=== PATIENT | male | born 1970 | race Asian ===

== ENCOUNTER 2019-12-21 14:44 | Outpatient (CLI) | payer MEDICAID | END 2019-12-21 14:45 | disposition critical access hospital (66) | LOC: EMS 14:44 | PROVIDERS: ATTEND Surgery | DX: R41.0 Disorientation, unspecified (principal) | CPT/HCPCS: A0425; A0429; A0999 ==

== ENCOUNTER 2019-12-21 15:10 | Emergency (ER) | payer MEDICAID ==
[2019-12-21] MEDS ORDERED: THIAMINE 100 MG TABLET PO STA (15:25)
--- NOTE | 2019-12-21 15:25 | ED Physician Documentation ---
PD HPI ALTERED MENTAL STATUS - Stated complaint Stated Complaint: AMS - History obtained from History obtained from: Patient, EMS - Additional information Additional information: 49-year-old gentleman with type 2 diabetes, not on insulin. He says he was drinking alcohol and wine this morning and then was slumped over the wheel of his car in the middle of the road. He was assessed by paramedics and state patrol but interestingly, his blood alcohol was negligible by breathalyzer. He says he has not been drinking any odd alcohol such as antifreeze, windshield wiper fluid or mouthwash. Review of Systems Ten Systems: 10 systems reviewed and negative Constitutional: denies: Fever, Chills Cardiac: denies: Chest pain / pressure, Palpitations Respiratory: denies: Dyspnea, Cough PD PAST MEDICAL HISTORY - Allergies Allergies/Adverse Reactions: Allergies Allergy/AdvReac Type Severity Reaction Status Date / Time No Known Drug Allergies Allergy Verified 12/21/19 15:19 PD ED PE NORMAL - Vitals Vital signs reviewed: Yes - General General: Other (Pleasant but drunk appearing gentleman laying in bed in no distress.) - HEENT HEENT: PERRL, EOMI (With a lot of horizontal nystagmus) - Neck Neck: Supple, no meningeal sign, No bony TTP - Cardiac Cardiac: Other (Tachycardic but regular) - Respiratory Respiratory: No respiratory distress, Clear bilaterally - Abdomen Abdomen: Soft, Non tender - Back Back: No CVA TTP, No spinal TTP - Derm Derm: Normal color, Warm and dry - Extremities Extremities: No edema, No calf tenderness / cord - Neuro Neuro: Alert and oriented X 3, No motor deficit, No sensory deficit, Normal speech Eye Opening: Spontaneous Motor: Obeys Commands Verbal: Oriented GCS Score: 15 - Psych Psych: Normal mood, Normal affect Results - Vitals Vitals: Vital Signs - 24 hr 12/21/19 12/21/19 12/21/19 15:19 15:55 16:25 Temperature 37.3 C Heart Rate 124 H 122 H 130 H Respiratory 16 24 22 Rate Blood Pressure 142/99 H 144/97 H 118/77 O2 Saturation 97 96 94 12/21/19 12/21/19 12/21/19 17:00 17:30 18:00 Temperature Heart Rate 121 H 120 H 118 H Respiratory 19 19 19 Rate Blood Pressure 108/67 105/63 106/86 H O2 Saturation 92 93 93 12/21/19 12/21/19 12/21/19 18:30 19:00 19:30 Temperature Heart Rate 111 H 113 H 109 H Respiratory 19 18 18 Rate Blood Pressure 119/74 119/72 101/52 L O2 Saturation 92 96 94 12/21/19 12/21/19 12/21/19 20:00 20:30 21:00 Temperature Heart Rate 102 H 103 H 106 H Respiratory 17 18 17 Rate Blood Pressure 98/71 116/84 H 108/74 O2 Saturation 94 98 92 Oxygen O2 Source Room air - EKG (time done) 1516 Rate: Rate (enter#) (122) Rhythm: Sinus tachycardia [place]: Normal Intervals: Normal NE QRS: Normal Ischemia: Non specific changes Computer interpretation: Agree with computer - Labs Labs: Laboratory Tests 12/21/19 12/21/19 12/21/19 15:28 15:28 15:42 WBC 10.9 H RBC 4.66 L Hgb 15.6 Hct 45.2 MCV 97.0 H MCH 33.5 H MCHC 34.5 RDW 14.5 Plt Count 158 MPV 11.8 H Neut # (Auto) 5.6 Lymph # (Auto) 4.1 [place] # (Auto) 0.8 Eos # (Auto) 0.2 Baso # (Auto) 0.1 Absolute Nucleated RBC 0.00 Nucleated RBC % 0.0 Sodium 138 Potassium 4.0 Chloride 97 L Carbon Dioxide 26 Anion Gap 15.0 H BUN 6 Creatinine 0.6 Estimated GFR (MDRD) 144 Glucose 246 H Calcium 9.4 Total Bilirubin 0.9 AST 135 H ALT 68 H Alkaline Phosphatase 70 Total Protein 7.3 Albumin 4.1 Globulin 3.2 Albumin/Globulin Ratio 1.3 Lipase 26 Urine Opiates Screen NEGATIVE Ur Oxycodone Screen NEGATIVE Urine Methadone Screen NEGATIVE Ur Propoxyphene Screen NEGATIVE Ur Barbiturates Screen NEGATIVE Ur Tricyclics Screen NEGATIVE Ur Phencyclidine Scrn NEGATIVE Ur Amphetamine Screen NEGATIVE U Methamphetamines Scrn NEGATIVE U Benzodiazepines Scrn NEGATIVE Urine Cocaine Screen NEGATIVE U Cannabinoids Screen NEGATIVE Ethyl Alcohol 373.3 PD MEDICAL DECISION MAKING - ED course ED course: Shortly after arrival patient became belligerent and agitated. Pulled out his IV. He is not a safe discharge so was given some anxiolysis with IM Zyprexa and Ativan. Took Call from Sister Shari, the patient did authorize me to talk with her. She was given an update. She plans to call back in the morning. She will pick them up when it is appropriate which it is certainly not now. He will need to sober up for at least 12 hours or so looking at the blood alcohol level. Care to oncoming emergency physician at shift change to reevaluate in the wee hours of the morning to Discharge as appropriate or if the patient is willing to wait until the daytime to talk to social work. Departure - Departure Clinical Impression: Altered mental status Qualifiers: Altered mental status type: delirium Qualified Code(s): R41.0 - Disorientation, unspecified Alcohol intoxication Qualifiers: Complication of substance-induced condition: with delirium Qualified Code(s): F10.921 - Alcohol use, unspecified with intoxication delirium Condition: Good Record reviewed to determine appropriate education?: Yes Instructions: ED Alcohol Intoxication
[2019-12-21 15:33] LABS: BASOPHILS # (AUTO) 0.1 10^3/uL (0.0-0.1); BASOPHILS % (AUTO) 1.2 %; EOSINOPHILS # (AUTO) 0.2 10^3/uL (0.0-0.7); HGB - HEMOGLOBIN 15.6 g/dL (14.0-18.0); LYMPHOCYTES # (AUTO) 4.1 10^3/uL (1.5-3.5); LYMPHOCYTES % (AUTO) 37.2 %; MEAN CORPUSCULAR HEMOGLOBIN 33.5 pg (27.0-31.0); MEAN CORPUSCULAR HGB CONC 34.5 g/dL (32.0-36.0); MEAN PLATELET VOLUME 11.8 fL (7.4-11.4); MONOCYTES # (AUTO) 0.8 10^3/uL (0.0-1.0); MONOCYTES % (AUTO) 7.3 %; NEUTROPHILS # (AUTO) 5.6 10^3/uL (1.5-6.6); NEUTROPHILS % (AUTO) 51.7 %; PLT - PLATELET COUNT 158 10^3/uL (130-450); RED BLOOD COUNT 4.66 10^6/uL (4.70-6.10); RED CELL DISTRIBUTION WIDTH 14.5 % (12.0-15.0); WHITE BLOOD COUNT 10.9 x10^3/uL (4.8-10.8)
[2019-12-21 15:48] LABS: MUDS CUTOFF CONCENTRATIONS CUTOFF CONC BELOW:
[2019-12-21 15:49] LABS: ALBUMIN 4.1 g/dL (3.2-5.5); ALBUMIN/GLOBULIN RATIO 1.3 (1.0-2.2); BILIRUBIN,TOTAL 0.9 mg/dL (0.2-1.0); CALCIUM 9.4 mg/dL (8.5-10.3); CREATININE 0.6 mg/dL (0.6-1.2); TOTAL PROTEIN 7.3 g/dL (6.7-8.2)
[2019-12-21 16:11] LABS: AMPHETAMINE SCREEN,URINE NEGATIVE (NEGATIVE); BENZODIAZEPINES SCREEN, URINE NEGATIVE (NEGATIVE); COCAINE SCREEN URINE NEGATIVE (NEGATIVE); METHADONE SCREEN, URINE NEGATIVE (NEGATIVE); METHAMPHETAMINES SCREEN, URINE NEGATIVE (NEGATIVE); OPIATE SCREEN, URINE NEGATIVE (NEGATIVE); OXYCODONE SCREEN, URINE NEGATIVE (NEGATIVE); PROPOXYPHENE SCREEN, URINE NEGATIVE (NEGATIVE); TRICYCLIC ANTIDEPRESSANT,URINE NEGATIVE (NEGATIVE)
[2019-12-21] MEDS ORDERED: OLANZapine 10 MG VIAL IM STA (16:15)
[2019-12-21] MEDS ORDERED: LORazepam 2 MG/ML VIAL IM STA (16:15)
--- NOTE | 2019-12-22 07:19 | ED Physician Documentation ---
ED Addendum - Addendum Addendum: 12/22/19 07:18 The patient was ambulatory and awake and interacting well. He was awaiting family members for a ride at the time of shift change. He declined any social work needs. Acute altered mental status, improved #2 alcohol intoxication Disposition the patient is discharged home in stable condition.
[2019-12-22 07:21] VITALS: BP 159/111
== END 2019-12-22 07:20 | disposition home or self-care (01) ==
LOC: EDUNIT# → ED 15:10
DX: F10.121 Alcohol abuse with intoxication delirium (principal); R00.0 Tachycardia, unspecified; E11.9 Type 2 diabetes mellitus without complications
CPT/HCPCS: 36415; 80053; 80306; 80320; 83690; 85025; 93005; 96372; 99284; 99285; A9270; J2060